=== PATIENT | female | born 1955 | race Asian ===

== ENCOUNTER → 2023-05-30 13:18 | Outpatient (REF) | payer MEDICARE, SELFPAY ==
[2023-05-30 14:28] LABS: % Basophils 0.8 % (0-2); % Eosinophils 0.4 % (0-6); % Immature Granulocytes 0.5 % (0-0.5); % Lymphocytes 17.4 % (20.5-51.1); % Monocytes 5.7 % (1.7-9.3); % Neutrophils 75.2 % (42.2-75.2); Absolute Basophils 0.1 10^3/uL (0-0.2); Absolute Immature Granulocytes 0.1 10^3/uL (0-0.05); Absolute Lymphocytes 1.6 10^3/uL (1.2-3.4); Absolute Monocytes 0.5 10^3/uL (0.1-0.6); Absolute Neutrophils 6.9 10^3/uL (1.4-6.5); Hematocrit 40.7 % (37.0-47.0); Hemoglobin 13.7 g/dL (12.0-16.0); Mean Corp Hgb Conc. 33.7 g/dL (33.0-37.0); Mean Corpuscular Hgb 29.5 pg (27.0-31.0); Mean Corpuscular Volume 87.5 fL (81.0-99.0); Mean Platelet Volume 9.6 fL (7.4-10.4); Nucleated Red Blood Cells % 0 %; Platelet Count 339 10^3/uL (130-400); Red Blood Cell Count 4.65 10^6/uL (4.20-5.40); Red Cell Dist. Width 13.8 % (11.5-14.5); White Blood Cell Count 9.1 10^3/uL (4.8-10.8)
[2023-05-30 15:20] LABS: ALT (SGPT) 28 U/L (0-35); AST (SGOT) 27 U/L (14-36); Albumin 4.7 g/dl (3.5-5.0); Alkaline Phosphatase 57 U/L (38-126); Blood Urea Nitrogen 25 mg/dl (7-17); Calcium 10.2 mg/dl (8.4-10.2); Carbon Dioxide 25 mmol/L (22-30); Chloride 98 mmol/L (98-107); Glucose 151 mg/dl (70-99); HDL Cholesterol 51 mg/dl; LDL Cholesterol, Calculated 112 mg/dl; Potassium 4.5 mmol/L (3.5-5.1); Sodium 138 mmol/L (135-145); Total Bilirubin 0.3 mg/dl (0.2-1.3); Total Cholesterol 197 mg/dl (50-199); Total Protein 7.2 g/dl (6.3-8.2); Triglyceride 174 mg/dl (10-149); Very Low Density Lipoprotein 34 mg/dl (0-30); eGFR > 60.00
[2023-05-30 15:48] LABS: TSH Reflex To Free T4 0.04 uIU/ml (0.47-4.68)
[2023-05-30 16:17] LABS: Free T4 1.45 ng/dl (0.78-2.19)
[2023-05-31 08:37] LABS: Glycohemoglobin (HgbA1c) 6.9 % (4.0-5.6)
[2023-05-31 15:17] LABS: Free T3 3.22 pg/ml (2.77-5.27)
== END ==
LOC: REG 13:18
PROVIDERS: ATTENDING PHYSICIAN Family Medicine
DX: E11.43 Type 2 diabetes mellitus with diabetic autonomic (poly)neuropathy (principal); K31.84 Gastroparesis; E03.9 Hypothyroidism, unspecified
CPT/HCPCS: 36415; 80053; 80061; 83036; 84439; 84443; 84481; 85025

== ENCOUNTER → 2023-07-25 16:39 | Outpatient (REF) | payer MEDICARE, SELFPAY | LOC: WDC 16:39 | PROVIDERS: ATTENDING PHYSICIAN Family Medicine | DX: Z12.31 Encounter for screening mammogram for malignant neoplasm of breast (principal) | CPT/HCPCS: 77063; 77067 ==

== ENCOUNTER 2024-01-25 19:05 | Emergency (ER) | payer MEDICARE, SELFPAY ==
[2024-01-25 19:09] VITALS: BP 135/77
[2024-01-25 19:24] LABS: Glucose - Point of Care 146 mg/dl (70-99)
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
[2024-01-25] MEDS: ATIVAN 1 MG PO (20:18)
[2024-01-25 21:27] VITALS: BP 121/76
== END 2024-01-25 22:59 | disposition home or self-care (01) ==
LOC: EMR 19:05
PROVIDERS: EMERGENCY PHYSICIAN Emergency Medicine; FAMILY PHYSICIAN Family Medicine
DX: F41.9 Anxiety disorder, unspecified (principal); F32.A Depression, unspecified; E11.9 Type 2 diabetes mellitus without complications; I10 Essential (primary) hypertension; E03.9 Hypothyroidism, unspecified; E11.43 Type 2 diabetes mellitus with diabetic autonomic (poly)neuropathy; E78.00 Pure hypercholesterolemia, unspecified; G89.29 Other chronic pain; Z79.4 Long term (current) use of insulin; Z87.891 Personal history of nicotine dependence
CPT/HCPCS: 99283; 82962

== ENCOUNTER → 2024-02-15 10:21 | Outpatient (REF) | payer MEDICARE, SELFPAY ==
[2024-02-17 10:11] LABS: Quantiferon Mitogen minus NIL 9.99 IU/mL; Quantiferon NIL 0.01 IU/mL; Quantiferon TB Gold Plus Negative (Negative)
== END ==
LOC: REG 10:21
PROVIDERS: ATTENDING PHYSICIAN Physician Assistant; FAMILY PHYSICIAN Family Medicine
DX: L40.0 Psoriasis vulgaris (principal); Z79.899 Other long term (current) drug therapy
CPT/HCPCS: 36415; 86480

== ENCOUNTER 2024-05-08 16:02 | Emergency (ER) | payer MEDICARE, SELFPAY ==
[2024-05-08 16:30] VITALS: BP 103/66
[2024-05-08 16:32] VITALS: BMI 20.9
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
[2024-05-08 17:00] VITALS: BP 115/65
[2024-05-08 17:15] LABS: Glucose - Point of Care 58 mg/dl (70-99)
[2024-05-08 19:03] VITALS: BP 132/88
== END 2024-05-08 19:21 | disposition home or self-care (01) ==
LOC: EMR 16:02
PROVIDERS: EMERGENCY PHYSICIAN Emergency Medicine; FAMILY PHYSICIAN Family Medicine
DX: S01.111A Laceration without foreign body of right eyelid and periocular area, initial encounter (principal); S00.83XA Contusion of other part of head, initial encounter; Y04.0XXA Assault by unarmed brawl or fight, initial encounter; Y07.010 Husband, current, perpetrator of maltreatment and neglect; E11.9 Type 2 diabetes mellitus without complications; I10 Essential (primary) hypertension; E03.9 Hypothyroidism, unspecified; E78.00 Pure hypercholesterolemia, unspecified; Z87.891 Personal history of nicotine dependence; Z79.4 Long term (current) use of insulin
CPT/HCPCS: 12011; 99284; 70450; 70486; 82962